=== PATIENT | male | born 1990 | race American Indian/Alaskan Native ===

== ENCOUNTER 2020-10-22 13:02 | Emergency (ER) | payer OTHER ==
[~2020-10-22] VITALS: Ht 182.9 cm; Wt 99.8 kg
== END 2020-10-22 16:16 | disposition home or self-care (01) ==
LOC: ED 13:02
DX: B34.9 Viral infection, unspecified (principal); Z20.822 Contact with and (suspected) exposure to COVID-19
CPT/HCPCS: 99283; C9803; U0003

== ENCOUNTER 2020-11-19 19:47 | Emergency (ER) | payer OTHER ==
[~2020-11-19] VITALS: Ht 182.9 cm; Wt 99.8 kg
--- OUTSIDE RECORDS SUMMARY | 2020-11-19 19:56 | XMS ---
PreManage Notification: CHERYL WAGNER Security Agriculture Scientist Events No recent Security Events currently on file CRITERIA MET - [facility] - 2 Visits in 30 Days CARE PROVIDERS MICHAEL FELIPE Physician Chicken Hanger Current PHONE: [phone] ADITI Way [facility] Current PHONE: [phone] Eleni has no Care Guidelines for this patient. [place] VISIT COUNT (12 MO.) [address] Britany Kinsey [address] [place] [address] TOTAL 3 NOTE: Visits indicate total known visits. ED/UCC VISIT TRACKING (12 MO.) 11/19/2020 19:[address] [facility] [address] ALEJANDRE TYPE: Emergency COMPLAINT: - CONGESTION 10/22/2020 13:[address] [facility] [address] [facility] Dietrich [place] TYPE: Emergency COMPLAINT: - HEADACHE, BOPDY ACHES DIAGNOSES: - Viral infection, unspecified 12/20/2019 13:04 [facility] Tio MALIN TYPE: Emergency DIAGNOSES: - SOB/Cough/Stuffy Nose (TENT) - Cough - Acute upper respiratory infection, unspecified INPATIENT VISIT TRACKING (12 MO.) No inpatient visits to display in this time frame [email or web address]
[2020-11-19] MEDS ORDERED: PROVENTIL HFA6.7 GM INH (20:47)
== END 2020-11-19 20:55 | disposition home or self-care (01) ==
LOC: ED 19:47
DX: J06.9 Acute upper respiratory infection, unspecified (principal)
CPT/HCPCS: 99283

== ENCOUNTER 2021-02-14 18:42 | Emergency (ER) | payer OTHER ==
[~2021-02-14] VITALS: Ht 182.9 cm; Wt 104.3 kg
[~2021-02-14 18:42] MED LIST: PROVENTIL HFA6.7 GM INH
== END 2021-02-14 19:47 | disposition home or self-care (01) ==
LOC: ED 18:42
DX: S93.601A Unspecified sprain of right foot, initial encounter (principal); W22.8XXA Striking against or struck by other objects, initial encounter
CPT/HCPCS: 73630; 99283-25

== ENCOUNTER 2021-03-22 19:42 | Emergency (ER) | payer MEDICAID ==
[~2021-03-22] VITALS: Ht 182.9 cm; Wt 109.5 kg
--- OUTSIDE RECORDS SUMMARY | 2021-03-22 19:50 | XMS ---
PreManage Notification: CHERYL WAGNER Security Waste Transportation Technician Events 1 event(s) in the past 18 months Most recent security events: Elopement at [facility] 12/10/2020 16:03 - Other Details: PATIENT LWBS CRITERIA MET - 6 ED Visits in 6 Months CARE PROVIDERS MICHAEL FELIPE Physician Current PHONE: Unknown ADITI [address] [facility] Current PHONE: Unknown Eleni has no Care Guidelines for this patient. Care History Medical/Surgical 11/23/2020 [facility] - W CALLED PATIENT 2X- NO ANSWER- VOICEMAIL BOX NOT SET UP. - NO PCP LETTER SENT TO PATIENT WITH LOCAL CLINICS LISTED EAme[place] VISIT COUNT (12 MO.) [address] [facility] [facility] Ortega TOTAL 6 NOTE: Visits indicate total known visits. ED/UCC VISIT TRACKING (12 MO.) 03/22/2021 19:43 [facility] TYPE: Emergency COMPLAINT: - URINE PROBLEM 02/14/2021 18:43 [facility] [place] TYPE: Emergency COMPLAINT: - FOOT INJURY DIAGNOSES: - Striking against or struck by other objects, initial encounter - Unspecified sprain of right foot, initial encounter 12/22/2020 14:53 [place] [place] HDaina [place] TYPE: Emergency COMPLAINT: - DIARRHEA 12/10/2020 16:03 [facility] [place] Jay[place]Daina [place]rich [place] TYPE: Emergency COMPLAINT: - FLU SYMPTOMS, NAUSEA, HEADACHE, COUGH 11/19/2020 19:48 [facility] [place] JaynaDaina [place] TYPE: Emergency COMPLAINT: - CONGESTION DIAGNOSES: - Nasal congestion - Acute upper respiratory infection, unspecified 10/22/2020 13:04 [facility] [place] TYPE: Emergency COMPLAINT: - HEADACHE, BOPDY ACHES DIAGNOSES: - Viral infection, unspecified INPATIENT VISIT TRACKING (12 MO.) No inpatient visits to display in this time frame [id number]
== END 2021-03-23 01:00 | disposition home or self-care (01) ==
LOC: ED 19:42
DX: R35.0 Frequency of micturition (principal)
CPT/HCPCS: 51798; 80053; 81001; 85025; 99283-25

== ENCOUNTER 2021-06-04 14:46 | Emergency (ER) | payer MEDICAID ==
[~2021-06-04] VITALS: Ht 182.9 cm; Wt 108.9 kg
--- OUTSIDE RECORDS SUMMARY | 2021-06-04 14:55 | XMS ---
PreManage Notification: CHERYL WAGNER Security Milling Machine Operator Events 1 event(s) in the past 18 months Most recent security events: Elopement at [facility] 12/10/2020 16:03 - Other Details: PATIENT LWBS CRITERIA MET - [facility] - 2 Visits in 30 Days - 6 ED Visits in 6 Months - [facility] - Has Care Guidelines CARE PROVIDERS MICHAEL FELIPE Current PHONE: Unknown ADITI Way [facility] Current PHONE: Unknown Eleni has no Care Guidelines for this patient. Care History Medical/Surgical 03/29/2021 [facility] - PATIENT ANSWERED HIS PHONE-DISCUSSED FINDING A LOCAL PCP-PATIENT AGREED AND REQUESTED CLINIC LIST BE MAILED TO HIM. - MAILED CLINIC LIST. 11/23/2020 [facility] - CHW CALLED PATIENT 2X- NO ANSWER- VOICEMAIL BOX NOT SET UP. - NO PCP LETTER SENT TO PATIENT WITH LOCAL CLINICS LISTED E.D. VISIT COUNT (12 MO.) 8 J[facility] [place] TOTAL 8 NOTE: Visits indicate total known visits. ED/UCC VISIT TRACKING (12 MO.) 06/04/2021 14:47 [facility] [place] TYPE: Emergency COMPLAINT: - SORE THROAT, CHEST TIGHTNESS 06/02/2021 19:03 [facility] [place] TYPE: Emergency COMPLAINT: - RASH 03/22/2021 19:43 [facility] [place] TYPE: Emergency COMPLAINT: - URINE PROBLEM DIAGNOSES: - Frequency of micturition 02/14/2021 18:43 [facility] [place] TYPE: Emergency COMPLAINT: - FOOT INJURY DIAGNOSES: - Striking against or struck by other objects, initial encounter - Unspecified sprain of right foot, initial encounter 12/22/2020 14:53 [facility] [place] TYPE: Emergency COMPLAINT: - DIARRHEA 12/10/2020 16:03 [facility] [place] TYPE: Emergency COMPLAINT: - FLU SYMPTOMS, NAUSEA, HEADACHE, COUGH 11/19/2020 19:48 [facility] [place] TYPE: Emergency COMPLAINT: - CONGESTION DIAGNOSES: - Nasal congestion - Acute upper respiratory infection, unspecified 10/22/2020 13:04 [facility] [place] TYPE: Emergency COMPLAINT: - HEADACHE, BOPDY ACHES DIAGNOSES: - Viral infection, unspecified INPATIENT VISIT TRACKING (12 MO.) No inpatient visits to display in this time frame [id number]
[2021-06-04] MEDS ORDERED: BUSPIRONE HCL5 MG PO (17:11)
[2021-06-04] MEDS ORDERED: BUPROPION HCL150 M2 PO (17:11)
[2021-06-04] MEDS ORDERED: HYDROXYZINE HCL25 MG PO (17:13)
[2021-06-04] MEDS ORDERED: NORTRIPTYLINE H25 MG PO (17:13)
== END 2021-06-04 19:34 | disposition home or self-care (01) ==
LOC: ED 14:46
DX: J06.9 Acute upper respiratory infection, unspecified (principal); Z79.899 Other long term (current) drug therapy; Z20.822 Contact with and (suspected) exposure to COVID-19
CPT/HCPCS: 71045; 99283-25; C9803; U0003

== ENCOUNTER 2021-10-22 10:01 | Emergency (ER) | payer OTHER ==
[~2021-10-22] VITALS: Ht 182.9 cm; Wt 108.9 kg
[~2021-10-22 10:01] MED LIST changes: +BUPROPION HCL150 M2 PO; +BUSPIRONE HCL5 MG PO; +HYDROXYZINE HCL25 MG PO; +NORTRIPTYLINE H25 MG PO
--- OUTSIDE RECORDS SUMMARY | 2021-10-22 10:08 | XMS ---
PreManage Notification: CHERYL WAGNER Security Wedger Machine Events 2 event(s) in the past 18 months Most recent security events: Other at [facility] 06/02/2021 19:03 Details: PATIENT LWBS Elopement at [facility] 12/10/2020 16:03 - Other Details: PATIENT LWBS CRITERIA MET - [facility] - Has Care Guidelines CARE PROVIDERS MICHAEL FELIPE Current PHONE: Unknown ADITI [address] [facility] Current PHONE: Unknown Eleni has no Care Guidelines for this patient. Care History Medical/Surgical 03/29/2021 [facility] - PATIENT ANSWERED HIS PHONE-DISCUSSED FINDING A LOCAL PCP-PATIENT AGREED AND REQUESTED CLINIC LIST BE MAILED TO HIM. - MAILED CLINIC LIST. 11/23/2020 [facility] - CHW CALLED PATIENT 2X- NO ANSWER- VOICEMAIL BOX NOT SET UP. - NO PCP LETTER SENT TO PATIENT WITH LOCAL CLINICS LISTED E.D. VISIT COUNT (12 MO.) [address] [facility] TOTAL 9 NOTE: Visits indicate total known visits. ED/UCC VISIT TRACKING (12 MO.) 10/22/2021 10:02 [facility] [place] TYPE: Emergency COMPLAINT: - LT TOE PAIN 06/04/2021 14:47 [facility] [place] TYPE: Emergency COMPLAINT: - SORE THROAT, CHEST TIGHTNESS DIAGNOSES: - Contact with and (suspected) exposure to COVID-19 - Other joint terminal attack controller (current) drug therapy - Acute upper respiratory infection, unspecified - Cough, unspecified 06/02/2021 19:03 [facility] [place] TYPE: Emergency COMPLAINT: - RASH 03/22/2021 19:43 [facility] [address] [facility] [place] TYPE: Emergency COMPLAINT: - URINE PROBLEM DIAGNOSES: - Frequency of micturition 02/14/2021 18:[address] [facility] [address] [facility] [place] TYPE: Emergency COMPLAINT: - FOOT INJURY DIAGNOSES: - Unspecified sprain of right foot, initial encounter - Striking against or struck by other objects, initial encounter 12/22/2020 14:53 [place] [place] TYPE: Emergency COMPLAINT: - DIARRHEA 12/10/2020 16:03 [place] [place] TYPE: Emergency COMPLAINT: - FLU SYMPTOMS, NAUSEA, HEADACHE, COUGH 11/19/2020 19:[address] [facility] [address] [facility] Ortega [place] TYPE: Emergency COMPLAINT: - CONGESTION DIAGNOSES: - Acute upper respiratory infection, unspecified - Nasal congestion 10/22/2020 13:[address] [facility] [place] TYPE: Emergency COMPLAINT: - HEADACHE, BOPDY ACHES DIAGNOSES: - Viral infection, unspecified INPATIENT VISIT TRACKING (12 MO.) No inpatient visits to display in this time frame [id number]
[2021-10-22] MEDS ORDERED: CEPHALEXIN500 M1 PO (11:13)
== END 2021-10-22 11:27 | disposition home or self-care (01) ==
LOC: ED 10:01
DX: L03.032 Cellulitis of left toe (principal)
CPT/HCPCS: 11730; 99283-25; A9270-GY

== ENCOUNTER 2022-02-09 03:40 | Emergency (ER) | payer OTHER ==
[~2022-02-09] VITALS: Ht 185.4 cm; Wt 107.2 kg
[~2022-02-09 03:40] MED LIST changes: +CEPHALEXIN500 M1 PO
--- OUTSIDE RECORDS SUMMARY | 2022-02-09 05:41 | XMS ---
PreManage Notification: CHERYL WAGNER Security Welfare Director Events 2 event(s) in the past 18 months Most recent security events: Other at [facility] 06/02/2021 19:03 Details: PATIENT LWBS Elopement at [facility] 12/10/2020 16:03 - Other Details: PATIENT LWBS CRITERIA MET - [facility] - Has Care Guidelines CARE PROVIDERS MICHAEL FELIPE Current PHONE: Unknown ADITI Way [facility] Current PHONE: Unknown Eleni has no Care Guidelines for this patient. Care History Medical/Surgical 03/29/2021 [facility] - PATIENT ANSWERED HIS PHONE-DISCUSSED FINDING A LOCAL PCP-PATIENT AGREED AND REQUESTED CLINIC LIST BE MAILED TO HIM. - MAILED CLINIC LIST. 11/23/2020 [facility] - CHW CALLED PATIENT 2X- NO ANSWER- VOICEMAIL BOX NOT SET UP. - NO PCP LETTER SENT TO PATIENT WITH LOCAL CLINICS LISTED E.D. VISIT COUNT (12 MO.) [address] [facility]te[facility] TOTAL 6 NOTE: Visits indicate total known visits. ED/UCC VISIT TRACKING (12 MO.) 02/09/2022 03:40 [facility] [place] TYPE: Emergency COMPLAINT: - FALL, BACK AND RIB PAIN 10/22/2021 10:02 [facility] [place] TYPE: Emergency COMPLAINT: - LT TOE PAIN DIAGNOSES: - Cellulitis of left toe - Other specified soft tissue disorders 06/04/2021 14:47 [facility] [place] TYPE: Emergency COMPLAINT: - SORE THROAT, CHEST TIGHTNESS DIAGNOSES: - Acute upper respiratory infection, unspecified - Cough, unspecified - Contact with and (suspected) exposure to COVID-19 - Other mcfp (current) drug therapy 06/02/2021 19:03 [facility] [place] TYPE: Emergency COMPLAINT: - RASH 03/22/2021 19:43 [facility] [place] TYPE: Emergency COMPLAINT: - URINE PROBLEM DIAGNOSES: - Frequency of micturition 02/14/2021 18:[address] [facility] [facility] [place] TYPE: Emergency COMPLAINT: - FOOT INJURY DIAGNOSES: - Striking against or struck by other objects, initial encounter - Unspecified sprain of right foot, initial encounter INPATIENT VISIT TRACKING (12 MO.) No inpatient visits to display in this time frame [id number]
== END 2022-02-09 04:55 | disposition home or self-care (01) ==
LOC: ED 03:40
DX: S39.012A Strain of muscle, fascia and tendon of lower back, initial encounter (principal); S29.011A Strain of muscle and tendon of front wall of thorax, initial encounter; W19.XXXA Unspecified fall, initial encounter
CPT/HCPCS: 71101; 96372; 99283-25; J1885; J3360

== ENCOUNTER 2022-12-16 23:23 | Emergency (ER) | payer SELFPAY ==
[~2022-12-16] VITALS: Ht 185.4 cm; Wt 108.6 kg
[2022-12-17 00:38] LABS: HEMOGLOBIN 13.5 g/dL (12.0-18.0)
[2022-12-17 00:44] LABS: BASOPHILS 0.5 % (0-2); EOSINOPHILS 8.7 % (0-6); HEMATOCRIT 41.2 % (35.0-50.0); LYMPHOCYTES 13.6 % (24-44); MCH 27.4 (27-36); MCHC 32.8 g/dl (30-36); MCV 83.5 fl (81-99); MONOCYTES 5.9 % (0-12); NEUTROPHILS 71.3 % (39-80); PLATELET COUNT 270 K/uL (140-440); RBC 4.93 M/ul (4.3-5.7)
[2022-12-17 00:53] LABS: ALBUMIN 4.1 g/dL (3.4-5.0); ALBUMIN/GLOBULIN RATIO 1.17 (1.1-2.4); ANION GAP 11.5 (7-21); BILIRUBIN, TOTAL 0.4 ng/dL (0.2-1.0); BUN/CREATININE RATIO 8.49 (6.0-28.6); CALCIUM 8.5 mg/dL (8.5-10.1); CREATININE, SERUM 1.06 mg/dL (0.70-1.30); MAGNESIUM 1.9 mg/dL (1.8-2.4); POTASSIUM 3.5 mmol/L (3.5-5.1); PROTEIN, TOTAL 7.6 g/dL (6.4-8.2)
[2022-12-17 01:47] LABS: BILIRUBIN, URINE NEGATIVE (negative); BLOOD/HGB, URINE NEGATIVE (Negative); KETONE, URINE NEGATIVE (Negative); LEUK ESTERASE, URINE NEGATIVE (negative); NITRITE, URINE NEGATIVE (negative)
[2022-12-17 02:43] VITALS: BP 106/65
== END 2022-12-17 02:44 | disposition home or self-care (01) ==
LOC: ED 23:23
PROVIDERS: Emergency Medicine
DX: R10.9 Unspecified abdominal pain (principal); Z88.8 Allergy status to other drugs, medicaments and biological substances
CPT/HCPCS: 36415; 80053; 81001; 81003; 83690; 83735; 85025; 99284

== ENCOUNTER 2022-12-23 16:22 | Emergency (ER) | payer SELFPAY ==
[~2022-12-23] VITALS: Ht 185.4 cm; Wt 108.4 kg
--- OUTSIDE RECORDS SUMMARY | 2022-12-23 16:30 | XMS ---
PreManage Notification: CHERYL WAGNER Security Billing Representative Events No recent Security Events currently on file CRITERIA MET - [facility] - 2 Visits in 30 Days CARE PROVIDERS -, [place]- Dentist: Bead Forming Machine Set Up Operator [facility] PHONE: [phone] MICHAEL FELIPE Physician Advanced Solutions Architect Current PHONE: Unknown ADITI Way [facility] Current PHONE: [phone] Eleni has no Care Guidelines for this patient. Care History Medical/Surgical 03/29/2021 [facility] - PATIENT ANSWERED HIS PHONE-DISCUSSED FINDING A LOCAL PCP-PATIENT AGREED AND REQUESTED CLINIC LIST BE MAILED TO HIM. - MAILED CLINIC LIST. 11/23/2020 [facility] - CHW CALLED PATIENT 2X- NO ANSWER- VOICEMAIL BOX NOT SET UP. - NO PCP LETTER SENT TO PATIENT WITH LOCAL CLINICS LISTED [place] VISIT COUNT (12 MO.) [address] (Allison Cooper) TOTAL 4 NOTE: Visits indicate total known visits. ED/UCC VISIT TRACKING (12 MO.) [facility] [place] [facility] COMPLAINT: - MEDICATION REACTION 12/17/2022 15:07 [facility] LyndaArist[facility] Allison Cooper KIMO (Allison Cooper) TYPE: Emergency DIAGNOSES: - Gastritis, unspecified, without bleeding - ABD pain - Abdominal Pain 12/16/2022 23:23 [facility] [place] TYPE: Emergency COMPLAINT: - FLANK PAIN DIAGNOSES: - Allergy status to other drugs, medicaments and biological substances - Unspecified abdominal pain 02/09/2022 03:40 [facility] [place] TYPE: Emergency COMPLAINT: - FALL, BACK AND RIB PAIN DIAGNOSES: - Pleurodynia - Strain of muscle and tendon of front wall of thorax, initial encounter - Strain of muscle, fascia and tendon of lower back, initial encounter - Unspecified fall, initial encounter INPATIENT VISIT TRACKING (12 MO.) No inpatient visits to display in this time frame [id number]
[2022-12-23] MEDS ORDERED: HYDROXYZINE HCL25 MG PO (17:01)
[2022-12-23] MEDS ORDERED: VARENICLINE TA0.5 MG PO (17:01)
[2022-12-23] MEDS ORDERED: VARENICLINE TART1 MG PO (17:02)
[2022-12-23] MEDS ORDERED: SUCRALFATE1 GM PO (17:03)
[2022-12-23] MEDS ORDERED: PANTOPRAZOLE SO40 MG PO (17:03)
[2022-12-23 17:30] VITALS: BP 107/66
== END 2022-12-23 17:32 | disposition home or self-care (01) ==
LOC: ED 16:22
DX: R53.83 Other fatigue (principal); T44.995A Adverse effect of other drug primarily affecting the autonomic nervous system, initial encounter; X58.XXXA Exposure to other specified factors, initial encounter; F17.290 Nicotine dependence, other tobacco product, uncomplicated; Z88.8 Allergy status to other drugs, medicaments and biological substances; Z79.890 Hormone replacement therapy; Z79.899 Other long term (current) drug therapy
CPT/HCPCS: 99282

== ENCOUNTER 2023-01-14 01:28 | Emergency (ER) | payer BC ==
[~2023-01-14] VITALS: Ht 185.4 cm; Wt 108.4 kg
[~2023-01-14 01:28] MED LIST changes: +PANTOPRAZOLE SO40 MG PO; +SUCRALFATE1 GM PO; +VARENICLINE TA0.5 MG PO; +VARENICLINE TART1 MG PO
--- OUTSIDE RECORDS SUMMARY | 2023-01-14 01:37 | XMS ---
PreManage Notification: CHERYL WAGNER Security Bean Sprout Grower Events No recent Security Events currently on file CRITERIA MET - [facility] - 2 Visits in 30 Days CARE PROVIDERS -, [place]- Dentist: Lasting Machine Operator [facility] PHONE: [phone] MICHAEL FELIPE Physician Track Laying Equipment Operator Current PHONE: Unknown ADITI Way [facility] Current PHONE: [phone] Eleni has no Care Guidelines for this patient. Care History Medical/Surgical 03/29/2021 [facility] - PATIENT ANSWERED HIS PHONE-DISCUSSED FINDING A LOCAL PCP-PATIENT AGREED AND REQUESTED CLINIC LIST BE MAILED TO HIM. - MAILED CLINIC LIST. 11/23/2020 [facility] - CHW CALLED PATIENT 2X- NO ANSWER- VOICEMAIL BOX NOT SET UP. - NO PCP LETTER SENT TO PATIENT WITH LOCAL CLINICS LISTED [place] VISIT COUNT (12 MO.) 4 [facility] 1 [facility] Toi (Allison Cooper) TOTAL 5 NOTE: Visits indicate total known visits. ED/UCC VISIT TRACKING (12 MO.) 01/14/2023 01:29 [facility] Shannon Dietrich [place] TYPE: Emergency COMPLAINT: - VOMITING 12/23/2022 16:23 [facility] [place] TYPE: Emergency COMPLAINT: - MEDICATION REACTION DIAGNOSES: - Adverse effect of other drug primarily affecting the autonomic nervous system, initial encounter - Allergy status to other drugs, medicaments and biological substances - Exposure to other specified factors, initial encounter - Hormone replacement therapy - Nicotine dependence, other tobacco product, uncomplicated - Other fatigue - Other marine oil terminal superintendent (current) drug therapy [facility]22 [facility]Allison [facility] DIAGNOSES: - Gastritis, [...] visits to display in this time frame [id number]
[2023-01-14 02:12] VITALS: BP 118/73
== END 2023-01-14 02:13 | disposition home or self-care (01) ==
LOC: ED 01:28
DX: F12.90 Cannabis use, unspecified, uncomplicated (principal); K21.9 Gastro-esophageal reflux disease without esophagitis; Z88.8 Allergy status to other drugs, medicaments and biological substances; Z79.899 Other long term (current) drug therapy
CPT/HCPCS: 99283

== ENCOUNTER 2023-03-02 12:35 | Emergency (ER) | payer BC ==
[~2023-03-02] VITALS: Ht 185.4 cm; Wt 108.9 kg
[2023-03-02 13:30] LABS: INFLUENZA B NAA NEGATIVE (NEGATIVE); RESPIRATORY SYNCYTIAL VIR NAA NEGATIVE (NEGATIVE)
[2023-03-02] MEDS ORDERED: BENZONATATE100 MG PO (15:30)
[2023-03-02 15:53] VITALS: BP 101/82
== END 2023-03-02 15:50 | disposition home or self-care (01) ==
LOC: ED 12:35
PROVIDERS: Emergency Medicine
DX: J02.9 Acute pharyngitis, unspecified (principal); Z11.52 Encounter for screening for COVID-19; Z88.8 Allergy status to other drugs, medicaments and biological substances; Z79.899 Other long term (current) drug therapy
CPT/HCPCS: 87502; 87651; 99283; A9270; J8540; U0002

== ENCOUNTER 2023-09-07 03:20 | Emergency (ER) | payer SELFPAY ==
[~2023-09-07] VITALS: Ht 185.4 cm; Wt 103.0 kg
[~2023-09-07 03:20] MED LIST changes: +BENZONATATE100 MG PO; +PREDNISONE20 MG PO; +VENTOLIN HFA18 GM INH
[2023-09-07] MEDS ORDERED: AMOX TR-K CLV1 EAC1 PO (03:34)
[2023-09-07] MEDS ORDERED: CELEBREX200 MG PO (03:34)
[2023-09-07] MEDS ORDERED: TRAMADOL HCL 50 MG HOME.PACK PO ONE (03:45)
[2023-09-07] MEDS ORDERED: KETOROLAC TROMETHAMINE 60 MG/2 ML VIAL IM ONE (03:45)
[2023-09-07] MEDS ORDERED: AMOXICILLIN/CLAVULANATE K 875 MG HOME.PACK PO ONE (03:45)
[2023-09-07 04:15] VITALS: BP 114/68
== END 2023-09-07 04:20 | disposition home or self-care (01) ==
LOC: ED 03:20
DX: K02.9 Dental caries, unspecified (principal); Z88.8 Allergy status to other drugs, medicaments and biological substances
CPT/HCPCS: 96372; 99282-25; A9270; J1885

== ENCOUNTER 2023-09-17 15:59 | Emergency (ER) | payer SELFPAY ==
[~2023-09-17] VITALS: Ht 185.4 cm; Wt 101.6 kg
[~2023-09-17 15:59] MED LIST changes: +AMOX TR-K CLV1 EAC1 PO; +CELEBREX200 MG PO
[2023-09-17] MEDS ORDERED: PERCOCET 5-3251 EACH PO (18:12)
[2023-09-17] MEDS ORDERED: HYDROmorphone HCL 1 MG/ML SYR IV PRN (18:15)
== END 2023-09-17 18:26 | disposition home or self-care (01) ==
LOC: ED 15:59
DX: K02.9 Dental caries, unspecified (principal); F17.290 Nicotine dependence, other tobacco product, uncomplicated; Z88.8 Allergy status to other drugs, medicaments and biological substances; Z79.899 Other long term (current) drug therapy
CPT/HCPCS: 99282

== ENCOUNTER 2024-10-04 19:59 | Emergency (ER) | payer OTHER ==
[~2024-10-04] VITALS: Ht 185.4 cm; Wt 102.1 kg
[~2024-10-04 19:59] MED LIST changes: +PERCOCET 5-3251 EACH PO
[2024-10-04 20:58] LABS: BASOPHILS 0.8 % (0.2-1.2); EOSINOPHILS 6.7 % (0.8-7.0); LYMPHOCYTES 25.1 % (21.8-53.1); MCH 26.8 PG (25.7-32.2); MCHC 33.2 g/dL (32.3-36.5); MCV 80.7 fL (79.0-92.2); MONOCYTES 12.1 % (5.3-12.2); NEUTROPHILS 55.1 % (34.0-67.9); RBC 5.45 M/uL (4.63-6.08)
[2024-10-04 21:13] LABS: ALT (SGPT) 45.0 U/L (14-59); AST (SGOT) 31.0 U/L (15-37); GLOMERULAR FILTRATION RATE,EST 97.0 mL/min (>60); PROTEIN, TOTAL 8.6 g/dL (6.4-8.2); UREA NITROGEN 8.0 mg/dL (7-18)
[2024-10-04] MEDS ORDERED: PROMETHAZINE HC25 M1 PO (21:32)
[2024-10-04] MEDS ORDERED: PROMETHAZINE HCL 25 MG HOME.PACK PO ONE (21:45)
[2024-10-04 21:48] VITALS: BP 132/85
== END 2024-10-04 21:47 | disposition home or self-care (01) ==
LOC: ED 19:59
PROVIDERS: Family Medicine
DX: R42 Dizziness and giddiness (principal); G93.0 Cerebral cysts; Z87.828 Personal history of other (healed) physical injury and trauma; Z88.8 Allergy status to other drugs, medicaments and biological substances
CPT/HCPCS: 36415; 70450; 80053; 83735; 85025

== ENCOUNTER 2025-02-07 05:44 | Emergency (ER) | payer OTHER ==
[~2025-02-07] VITALS: Ht 185.4 cm; Wt 101.0 kg
[~2025-02-07 05:44] MED LIST changes: +PROMETHAZINE HC25 M1 PO
[2025-02-07] MEDS ORDERED: CEPHALEXIN500 M1 PO (05:54)
[2025-02-07] MEDS ORDERED: MELOXICAM15 MG PO (05:54)
[2025-02-07] MEDS ORDERED: TRAMADOL HCL 50 MG HOME.PACK PO ONE (06:00)
[2025-02-07] MEDS ORDERED: CEPHALEXIN MONOHYDRATE 500 MG HOME.PACK PO ONE (06:00)
[2025-02-07 06:19] VITALS: BP 144/98
== END 2025-02-07 06:22 | disposition home or self-care (01) ==
LOC: ED 05:44
DX: K04.7 Periapical abscess without sinus (principal); Z88.5 Allergy status to narcotic agent
CPT/HCPCS: 99282; A9270